=== PATIENT | female | born 1985 | race African-American/Black ===

== ENCOUNTER 2024-01-16 15:02 | Emergency (ER) | payer OTHER ==
[~2024-01-16] VITALS: Ht 165.1 cm; Wt 93.7 kg
[2024-01-16 15:28] VITALS: BP 134/76; PULSE 99; RESP 18; TEMP 98.3; O2SAT 99
[2024-01-16] MEDS: NACL 0.9% 1,000 ML IV ONE (16:25)
[2024-01-16] MEDS: ONDANSETRON 4 MG/2 ML VIAL IVP ONE (16:51)
[2024-01-16] MEDS ORDERED: DOXY1TCP PO (17:33)
[2024-01-16] MEDS ORDERED: PHE25S RC (17:33)
== END 2024-01-16 17:46 | disposition home or self-care (01) ==
LOC: MED 15:02
DX: O21.8 Other vomiting complicating pregnancy (principal); Z3A.10 10 weeks gestation of pregnancy; Z79.899 Other long term (current) drug therapy
CPT/HCPCS: 81025; 96361; 96374; 99283; J2405; J7030